=== PATIENT | male | born 1955 | race Caucasian/White ===

== ENCOUNTER 2021-01-28 17:31 | Emergency (ER) | payer MEDICARE ==
[~2021-01-28 17:31] MED LIST: ACIPHEX20 MG PO; BENTYL10 MG PO; CARAFATE S500 MG/TSP PO; FLONASE ALLER15.8 ML; IBUPROFEN800 MG PO; ZOFRAN8 MG PO; ZYRTEC10 M3 PO
[2021-01-28 18:33] LABS: BASOPHIL 0.8 % (0-2); EOSINOPHIL 3.1 % (0-7); HCT 45.9 % (42.0-52.0); HGB 16.2 g/dl (13.2-18.0); LYMPHOCYTE 31.5 % (15-48); MCH 33.3 pg (25.0-31.0); MCHC 35.3 g/dL (32.0-36.0); MCV 94.3 fL (78.0-100.0); MONOCYTE 6.9 % (0-12); MPV 9.4 fL (6.0-9.5); NEUTROPHIL 57.5 % (41-80); NRBC 0; PLT 237 K/uL (150-400); RBC 4.87 M/uL (4.70-6.00); RDW 12.9 % (11.5-14.0); WBC 8.6 K/uL (4.0-10.5)
[2021-01-28 18:45] LABS: ALBUMIN 3.4 g/dL (3.4-5.0); BILIRUBIN - TOTAL 0.3 mg/dL (0.2-1.0); BUN/CREAT RATIO (CALC) 13.2 RATIO; CREATININE 1.21 mg/dL (0.67-1.17); GLOBULIN (CALCULATION) 3.7 g/dL; POTASSIUM 4.4 mmol/L (3.5-5.1); TOTAL PROTEIN 7.1 g/dL (6.4-8.2)
[2021-01-28 18:54] LABS: CKMB 1.3 ng/mL (0.0-3.6); PRO-BNP 224 pg/mL (<125)
== END 2021-01-28 20:55 | disposition left against medical advice (07) ==
LOC: FER 17:31
PROVIDERS: Nurse Practitioner
DX: R07.89 Other chest pain (principal); R09.02 Hypoxemia; R06.02 Shortness of breath; F10.10 Alcohol abuse, uncomplicated; I25.10 Atherosclerotic heart disease of native coronary artery without angina pectoris; I10 Essential (primary) hypertension; I25.2 Old myocardial infarction; Y90.6 Blood alcohol level of 120-199 mg/100 ml
CPT/HCPCS: 36415; 71045; 80053; 82553; 83880; 84484; 85025; 93005; G0480